=== PATIENT | male | born 1995 | race Caucasian/White ===

== ENCOUNTER 2022-10-04 22:53 | Emergency (ER) | payer OTHER, SELFPAY ==
[2022-10-04 23:05] VITALS: BP 111/76; PULSE 66; RESP 18; TEMP 36.6; O2SAT 97; BMI 21.8
[2022-10-04 23:13] VITALS: BP 111/76; PULSE 75; RESP 19; O2SAT 96
[2022-10-04 23:20] VITALS: PULSE 63; RESP 16; O2SAT 100
[2022-10-04 23:30] VITALS: PULSE 73; PULSE 80; RESP 17
--- NOTE | 2022-10-04 23:32 | ED.CHESTPAI1 ---
HPI - Chest Pain General Chief Complaint: Chest Pain Stated Complaint: CHEST PAIN Time Seen by Provider: 10/04/22 23:29 Source: patient Mode of arrival: walk-in History of Present Illness HPI narrative: history of anxiety. Past in patient psychiatric admissions. States he has not been prescribed Xanax for years. Was recently prescribed Vistaril but this was also d/haroon because it affected his bladder. Describes stabbing chest pain tonight and heart racing senation. Not short of breath. Daily smoker. no fever. No known history of asthma MD complaint: Reports chest pain Related Data Home Medications Medication Instructions Recorded Confirmed aripiprazole 5 mg tablet mg 10/04/22 sertraline 50 mg tablet 50 mg PO Q24H 10/04/22 10/04/22 Allergies Allergy/AdvReac Type Severity Reaction Status Date / Time hydroxyzine [From Vistaril] AdvReac Intermediate Verified 10/04/22 23:17 sulfamethoxazole AdvReac Mild Verified 10/04/22 23:17 [From Bactrim] trimethoprim [From Bactrim] AdvReac Mild Verified 10/04/22 23:17 Review of Systems ROS Status of ROS 10 or more systems reviewed and unremarkable except as noted in history and below Cardiovascular Reports: chest pain and palpitations PFSH PFSH Social History Smoking status: Current every day smoker Exam Constitutional Vital Signs, click to edit/add: Last Vital Signs Temp 98 F 10/04/22 23:05 Pulse 74 10/05/22 00:40 Resp 18 10/05/22 01:40 BP 108/65 10/05/22 01:15 Pulse Ox 100 10/04/22 23:20 O2 Del Method Room Air 10/04/22 23:05 Common normals: no apparent distress, average body habitus, oriented x3, healthy appearing, alert and well nourished Eye Common normals: PERRL, EOMs intact bilaterally and conjunctivae normal Respiratory Common normals: normal respiratory effort, no retractions, no use of accessory muscles and clear to auscultation bilaterally Cardio Common normals: regular rate, regular rhythm, S1 normal heart sound and S2 normal heart sound GI Common normals: Normal to inspection, nondistended, normoactive bowel sounds present, soft to palpation and non-tender Extremity Common normals: normal to inspection and full ROM Neuro Common normals: CN's II-XII intact bilaterally, no focal motor deficits and no sensory deficits noted Psych Appearance: grossly normal Course Vital Signs Vital signs: Vital Signs Temperature 98 F 10/04/22 23:05 Pulse Rate 66 10/04/22 23:05 Respiratory Rate 18 10/04/22 23:05 Blood Pressure 111/76 10/04/22 23:05 Pulse Oximetry 97 10/04/22 23:05 Oxygen Delivery Method Room Air 10/04/22 23:05 Temperature 98 F 10/04/22 23:05 Pulse Rate 74 10/05/22 00:40 Respiratory Rate 18 10/05/22 01:40 Blood Pressure 108/65 10/05/22 01:15 Pulse Oximetry 100 10/04/22 23:20 Oxygen Delivery Method Room Air 10/04/22 23:05 MDM - Chest Pain MDM Narrative Medical decision making narrative: patient presents with chest pain and history of anxiety. Has an appointment tomorrow AM with mental health. labs unremarkable including Troponin that is not detectable. CXray is clear. Discharged home and advised to follow up with mental health as described Lab Data Labs: Lab Results 10/04/22 Range/Units 22:30 WBC 7.6 (4.0-11.0) 10^3/uL RBC 4.76 (4.70-6.10) 10^6/uL Hgb 14.0 (14.0-18.0) g/dL Hct 41.7 L (42.0-54.0) % MCV 87.6 (80.0-94.0) fL MCH 29.4 (25.9-34.0) pg MCHC 33.6 (29.9-35.2) g/dL RDW 13.2 (11.0-15.0) % Plt Count 225 (150-450) 10^3/uL MPV 11.1 (9.5-13.5) fL Neut % (Auto) 57.2 (43.0-75.0) % Lymph % (Auto) 35.3 (20.5-60.0) % [place] % (Auto) 6.2 (1.7-12.0) % Eos % (Auto) 0.9 (0.9-7.0) % Baso % (Auto) 0.3 (0.2-2.0) % Neut # (Auto) 4.3 (1.4-6.5) 10^3/uL Lymph # (Auto) 2.7 (1.2-3.8) 10^3/uL [place] # (Auto) 0.5 (0.3-0.8) 10^3/uL Eos # (Auto) 0.1 (0.0-0.7) 10^3/uL Baso # (Auto) 0.0 (0.0-0.1) 10^3/uL Abs Immat Gran (auto) 0.01 (0.00-0.03) 10^3/uL Imm/Tot Granulo (auto) 0.1 (0.0-0.5) % D-Dimer <0.19 (<=0.59) mg/L FEU Sodium 140 (136-145) mmol/L Potassium 3.4 L (3.5-5.1) mmol/L Chloride 106 (98-107) mmol/L Carbon Dioxide 27.3 (21.0-32.0) mmol/L Anion Gap 10.1 BUN 16.0 (7.0-18.0) mg/dL Creatinine 1.03 (0.70-1.30) mg/dL Est GFR ( Amer) >60 (>=60) Est GFR (Non-Af Amer) >60 (>=60) BUN/Creatinine Ratio 15.5 Glucose 105 (74-106) mg/dL Calcium 8.8 (8.5-10.1) mg/dL Troponin I High Sens <4.0 L (4.0-76.1) pg/mL Discharge Plan Discharge Chief Complaint: Chest Pain Clinical Impression: Anxiety Patient Disposition: Home, Self-Care Prescriptions / Home Meds: No Action sertraline 50 mg tablet 50 mg PO Q24H aripiprazole 5 mg tablet Instructions: Anxiety (ED) Stand Alone Forms: Portal Instructions Referrals: Physician,Non-Staff, MD [Primary Care Provider] - 1 week
--- NOTE | 2022-10-04 23:35 | XR_ITS ---
[place] [id number] Patient Name: MILES CHILEL MRN: [id number] date: 1995 Sex: M Assigned Patient Location: ER Current Patient Location: ED.MAIN Accession/Order Number: [id number] Exam Date: 10/04/2022 23:40 Report Date: 10/05/2022 00:34 At the request of: AIDAN COCHRAN Procedure: XR chest 1V EXAMINATION: XR chest 1V HISTORY: Chest pain and cough COMPARISON: None. TECHNIQUE: Portable chest FINDINGS: The lung parenchyma is free of consolidation or infiltrate. No pneumothorax or pleural effusion. The cardiac, mediastinal and hilar contours are normal. The visualized osseous structures exhibit no gross abnormality. XR/XR chest 1V IMPRESSION: No acute cardiopulmonary abnormality. Electronically authenticated by: RAFAEL PORTILLO Date: 10/05/2022 00:34
--- NOTE | 2022-10-04 23:35 | ECG_ITS ---
[facility] Test Date: 2022-10-04 Pat Name: MILES CHILEL Department: Room: - Gender: Male [employer]eral[employer] Professor: : 1995 Requested By: Order Number: [id number] Reading MD: BETO VALVERDE Measurements Intervals [place] Rate: 62 P: 73 TX: 142 QRS: 85 QRSD: 102 T: 65 QT: 374 QTc: 380 Interpretive Statements 1100 Sinus rhythm 1102 Sinus arrhythmia 2420 RSR (QR) in lead V1/V2, consistent with right ventricular conduction delay 9130 borderline ECG No previous ECG available for comparison Electronically Signed On 10-05-2022 7:08:06 EDT by BETO VALVERDE
[2022-10-04 23:40] VITALS: PULSE 67; RESP 19
[2022-10-04 23:50] VITALS: PULSE 68; RESP 20
[2022-10-04 23:52] LABS: Basophils Percent Auto 0.3 % (0.2-2.0); Eosinophils Absolute Auto 0.1 10^3/uL (0.0-0.7); Eosinophils Percent Auto 0.9 % (0.9-7.0); Hematocrit 41.7 % (42.0-54.0); Immature Granulocytes Abs Auto 0.01 10^3/uL (0.00-0.03); Immature Granulocytes Pct Auto 0.1 % (0.0-0.5); Lymphocytes Absolute Auto 2.7 10^3/uL (1.2-3.8); Lymphocytes Percent Auto 35.3 % (20.5-60.0); Mean Corpuscular HGB Conc 33.6 g/dL (29.9-35.2); Mean Corpuscular Hemoglobin 29.4 pg (25.9-34.0); Mean Corpuscular Volume 87.6 fL (80.0-94.0); Mean Platelet Volume 11.1 fL (9.5-13.5); Monocytes Absolute Auto 0.5 10^3/uL (0.3-0.8); Monocytes Percent Auto 6.2 % (1.7-12.0); Neutrophils Absolute Auto 4.3 10^3/uL (1.4-6.5); Neutrophils Percent Auto 57.2 % (43.0-75.0); Platelet Count 225 10^3/uL (150-450); Red Blood Count 4.76 10^6/uL (4.70-6.10); Red Cell Distribution Width 13.2 % (11.0-15.0); White Blood Count 7.6 10^3/uL (4.0-11.0)
[2022-10-05] VITALS (12 sets, daily range): BP systolic 108; BP diastolic 65; PULSE 74–89; RESP 13–32
[2022-10-05 00:06] LABS: Anion Gap 10.1; BUN Creatinine Ratio 15.5; Calcium 8.8 mg/dL (8.5-10.1); Carbon Dioxide 27.3 mmol/L (21.0-32.0); Chloride 106 mmol/L (98-107); Estimated GFR (African America >60 (>=60); Estimated GFR (Non-African Ame >60 (>=60); Glucose 105 mg/dL (74-106); Potassium 3.4 mmol/L (3.5-5.1); Sodium 140 mmol/L (136-145); Troponin I High Sensitivity <4.0 pg/mL (4.0-76.1)
[2022-10-05 00:09] LABS: D Dimer <0.19 mg/L FEU (<=0.59)
--- NOTE | 2022-10-05 00:34 | PC.NURSE ---
patient states he ws feeling fine until he went to a [facility] in [place]. states he was at the [facility] for about 4-5 hours when he started to feel bad states he started to experience center sharp chest pain, sneezing, and coughing. states he believes its from being at the [facility]. he states it was not very clean, it was hot without any air passing through. patient does vape daily, denies any cardiac hx. lungs sound clear, vital signs with in normal range. states hes very tired due to walking alot. states he has been homeless for approx a week but has plans to get an appartment. patient appears to be well taken care of clean. states the hot days he has been [place] [facility] because [place]. patient does have contact with an aunt but states he cannot see her until the morning.
[2022-10-05 02:05] LABS: Troponin I High Sensitivity <4.0 pg/mL (4.0-76.1)
== END 2022-10-05 02:23 | disposition home or self-care (01) ==
PROVIDERS: Emergency Provider Internal Medicine
DX: F41.9 Anxiety disorder, unspecified (principal); F17.210 Nicotine dependence, cigarettes, uncomplicated; Z79.899 Other long term (current) drug therapy
CPT/HCPCS: 36415; 71045; 80048; 84484; 85025; 85378; 93005; 99285